=== PATIENT | female | born 1985 | race Hispanic/Latino ===

== ENCOUNTER 2022-04-29 21:55 | Emergency (ER) | payer OTHER ==
[~2022-04-29] VITALS: Ht 154.9 cm; Wt 93.4 kg
[2022-04-30] MEDS ORDERED: METOCLOPRAMIDE 10 MG/2 ML VIAL IVP ONE
[2022-04-30] MEDS ORDERED: MECLIZINE HCL 25 MG TABLET PO ONE
[2022-04-30] MEDS ORDERED: KETOROLAC 30MG VIAL (30MG/ML) IVP ONE
[2022-04-30] MEDS ORDERED: DiphenhydrAMINE HCL 50 MG/ML VIAL IV ONE
[2022-04-30] MEDS ORDERED: IBUP-1493 PO (01:21)
[2022-04-30] MEDS ORDERED: MECL50TA3 PO (01:21)
[2022-04-30 01:56] VITALS: BP 101/58
== END 2022-04-30 01:58 | disposition home or self-care (01) ==
LOC: EDH 21:55
DX: R42 Dizziness and giddiness (principal); G43.909 Migraine, unspecified, not intractable, without status migrainosus; Z98.890 Other specified postprocedural states
CPT/HCPCS: 99284; 70450; 96374; 96375; J1200; J1885; J2765